=== PATIENT | female | born 1995 | race Caucasian/White ===

== ENCOUNTER 2018-02-13 21:06 | Emergency (ER) | payer MEDICAID, SELFPAY ==
[2018-02-13 22:01] LABS: Bilirubin Negative (Negative); Blood, Urine Negative (Negative); Clarity Clear (Clear); Glucose, Urine (Dipstick) Negative (Negative); Leukocyte Negative (Negative); Nitrite Negative (Negative); Protein, Urine (Dipstick) Negative (Neg-Trace); Urobilinogen 0.2 mg/dL (0.2-1.0); pH, Urine 5.5 (5.0-9.0)
[2018-02-13 22:02] LABS: Pregnancy Test - Urine (BHCG) Negative (Negative); Pregu Control Background? CLEAR/WHITE (CLR/WHITE); Pregu Control Bar Appear? YES (CONTROL BAR)
[2018-02-13 22:50] LABS: BHCG - Serum Negative (NEGATIVE); Pregs Control Background? CLEAR/WHITE (CLR/WHITE); Pregs Control Bar Appear? YES (CONTROL BAR)
--- NOTE | 2018-02-13 23:15 | RAD ---
ACUTE ABDOMINAL SERIES: 02/13/18 HISTORY: Abdominal cramping and constipation. Patient reports right sided lower abdominal pain. CHEST X-RAY: Compared to study on 12/26/15. The cardiac silhouette and pulmonary vasculature are within normal limits. Lungs remain clear. No sung e intraperitoneal air is seen beneath the hemidiaphragms. Upright and supine views of the abdomen. There is a nonspecific bowel gas pattern. No suspicious calc ifications are seen. Osseous structures are intact. IMPRESSION: Nonspecific bowel gas pattern. POS: [facility]
== END 2018-02-13 23:18 | disposition home or self-care (01) ==
LOC: SCSER 21:06
DX: K59.00 Constipation, unspecified (principal); J45.909 Unspecified asthma, uncomplicated; Z79.899 Other long term (current) drug therapy
CPT/HCPCS: 74022; 81003; 81025; 84703

== ENCOUNTER 2018-05-20 19:46 | Emergency (ER) | payer SELFPAY ==
[2018-05-20] MEDS ORDERED: Albuterol Sulfate 2.5 mg/0.5 ml Neb ONE (20:12)
[2018-05-20] MEDS ORDERED: methylPREDNISolone Sod Succ/PF 125 MG/2 ML VIAL ONE (21:00)
[2018-05-20] MEDS ORDERED: Magnesium Sulfate 2 GM/100 ML BAG ONE (21:00)
--- NOTE | 2018-05-20 21:57 | RAD ---
RADIOGRAPH CHEST 1 VIEW: 05/20/18 HISTORY: 22-year-old female with cough, tachycardia, and dyspnea. FINDINGS: The visualized lung bonilla are clear. The cardiomediastinal silhouette and hilar shadows are normal. The lateral costophrenic angles are sharp. The osseous structures appear normal. There is no pneu mothorax. IMPRESSION: Negative. jn [] POS: [facility]
[2018-05-20] MEDS ORDERED: Albuterol Sulfate 2.5 mg/3 ml Neb ONE (22:09)
== END 2018-05-20 23:04 | disposition home or self-care (01) ==
LOC: ERS 19:46
DX: J45.901 Unspecified asthma with (acute) exacerbation (principal); E11.9 Type 2 diabetes mellitus without complications; Z87.891 Personal history of nicotine dependence; Z79.899 Other long term (current) drug therapy
CPT/HCPCS: 71045; 93005; 94640; 96365; 96375; J2930; J3475; J7611

== ENCOUNTER 2018-05-31 19:13 | Emergency (ER) | payer SELFPAY ==
[2018-05-31] MEDS ORDERED: Albuterol Sulfate 2.5 mg/3 ml Neb ONE ×2 (19:36)
--- NOTE | 2018-05-31 19:46 | RAD ---
TWO VIEWS CHEST: Comparison: 05-20-18 History: Shortness of breath that began yesterday and dyspnea. FINDINGS: Two views of the chest show normal sized cardiomediastinal silhouette. There is no evidence of consol idation, mass, or pleural effusion. The bones are unremarkable. IMPRESSION: No evidence of acute cardiopulmonary disease. POS: [facility]
[2018-05-31 19:47] LABS: Hemoglobin 14.2 g/dL (12.0-16.0); Mean Corpuscular HGB CONC 32.3 g/dL (32.0-36.0); Mean Corpuscular Hemoglobin 26.5 pg (27.0-31.0); Mean Corpuscular Volume 82.2 fL (78.0-98.0); Mean Platelet Volume 6.3 fL (7.4-10.4); Platelet Count 423 thou/uL (130-400); RBC Distribution Width 13.7 % (11.5-14.5); Red Blood Cell (RBC) Count 5.35 mill/uL (4.20-5.40); White Blood Cell (WBC) Count 21.9 thou/uL (4.8-10.8)
[2018-05-31 20:18] LABS: Band 4 % (5-11); Eosinophils 2 % (0-10); Lymphocytes 4 % (21-51); MDiff Complete? YES; Monocytes 3 % (0-10); Neutrophil 86 % (42-75); PLT Morphology Comment Appears Increased
== END 2018-05-31 21:01 | disposition home or self-care (01) ==
LOC: ERS 19:13
DX: J45.901 Unspecified asthma with (acute) exacerbation (principal); E11.9 Type 2 diabetes mellitus without complications; Z79.899 Other long term (current) drug therapy
CPT/HCPCS: 36415; 71046; 85025; 94640; J7611

== ENCOUNTER 2018-12-19 07:18 | Inpatient (IN) | payer SELFPAY ==
[2018-12-19 07:47] LABS: #Monocytes 1.3 thou/uL (0.11-0.59); #Neutrophils 11.9 thou/uL (1.40-6.50); %Basophils 0.3 % (0.0-1.0); %Eosinophils 0.2 % (0.0-10.0); %Lymphocytes 18.6 % (21.0-51.0); %Monocytes 7.9 % (0.0-10.0); Hemoglobin 13.3 g/dL (12.0-16.0); Mean Corpuscular HGB CONC 32.2 g/dL (32.0-36.0); Mean Corpuscular Hemoglobin 26.6 pg (27.0-31.0); Mean Corpuscular Volume 82.7 fL (78.0-98.0); Mean Platelet Volume 6.6 fL (7.4-10.4); Platelet Count 410 thou/uL (130-400); RBC Distribution Width 13.4 % (11.5-14.5); Red Blood Cell (RBC) Count 4.99 mill/uL (4.20-5.40); White Blood Cell (WBC) Count 16.3 thou/uL (4.8-10.8)
[2018-12-19 07:55] LABS: BHCG - Serum Negative (NEGATIVE); Pregs Control Background? CLEAR/WHITE (CLR/WHITE); Pregs Control Bar Appear? YES (CONTROL BAR)
[2018-12-19 08:10] LABS: ALT (SGPT) 14 U/L (8-55); AST (SGOT) 12 U/L (5-34); Albumin 3.9 g/dL (3.5-5.0); Alkaline Phosphatase 75 U/L (40-150); Anion Gap 15 mmol/L (10-20); BUN (Urea Nitrogen) 11 mg/dL (7.0-18.7); Bilirubin, Total 0.4 mg/dL (0.2-1.2); Calc. Creatinine Clearance 0 mL/min (70-130); Calcium 8.6 mg/dL (7.8-10.44); Carbon Dioxide 19 mmol/L (22-29); Chloride 101 mmol/L (98-107); Estimated GFR-MDRD 81; Globulin 2.9 g/dL (2.4-3.5); Glucose 119 mg/dL (70-105); Potassium 3.3 mmol/L (3.5-5.1); Protein, Total 6.8 g/dL (6.0-8.3); Sodium 132 mmol/L (136-145)
--- NOTE | 2018-12-19 08:36 | RAD ---
RADIOGRAPH CHEST 1 VIEW: HISTORY: A 23-year-old female with dyspnea. FINDINGS: There are no air space densities, pulmonary edema, pneumothorax, or cardiomegaly. The lateral costop hrenic angles are sharp. IMPRESSION: No acute cardiopulmonary findings. charito [] POS: [facility]
--- NOTE | 2018-12-19 09:04 | CT ---
CTA THORAX WITH CONTRAST: (Computed Tomographic Angiography, chest(noncoronary) with contrast material, and image postprocessin g) (PE protocol) DATE: 12/19/2018. TIME: 8:08 a.m. HISTORY: A 23-year-old female with tachycardia, dyspnea, productive cough, and tachypnea. Dr. Torres discussed the findings and differential diagnosis with [facility] 8:27 a.m. on 12/19/2018. TECHNIQUE: IV injection of iodinated contrast: 100 mL of Isovue 370. Scan acquisition timing attempted to coincide with iodinated contrast bolus reaching maximal density in pulmonary arteries. 3D MIP reconstructions. FINDINGS: There is suboptimal IV contrast opacification of the pulmonary arteries, such that it is difficult to evaluate the branches of the left and right main pulmonary arteries for pulmonary thromboembolism. There is no thrombus in the pulmonic trunk or the left and right main pulmonary arteries. There is s ignificant hilar and mediastinal lymphadenopathy, with numerous noncalcified moderately enlarged bila teral hilar and mediastinal lymph nodes. No cardiomegaly, pericardial effusion, pleural effusion, or pneumothorax. The liver is enlarged and has low density suggestive of fatty liver. No thoracic aor tic dissection or aneurysm. There are multiple irregularly shaped noncalcified pulmonary nodules in the posterior and posteromedial base of the left lower lobe, with the larger ones almost reaching 2 c m. There are fewer such nodules in the right lower lobe base laterally. There is also tree-in-bud no dularity scattered in the lungs, mostly lower lobe bases, but also to a lesser degree other areas inc luding bilateral upper lobes and right middle lobe. There are small patchy airspace densities in the medial anterior segments of bilateral upper lobes, lingula, and right middle lobe. The trachea and left and right mainstem bronchi are patent and clear. IMPRESSION: 1. Significant mediastinal and bilateral hilar lymphadenopathy. 2. Tree-in-bud pattern throughout both lungs, especially in lower lobes. 3. Moderate suzed noncalcified irregularly shaped bilateral lower lobe pulmonary nodules, left great er than right. 4. The differential diagnoses for the above findings includes sarcoidosis, infection with atypical o rganisms, and less likely malignancy. 5. No central pulmonary thromboembolism in the pulmonic trunk and left and right main pulmonary gely eug[place]. 6. Poor IV contrast opacification of branches of pulmonary arteries making it difficult to evaluate for pulmonary thromboembolism in the branches of the pulmonary arteries. 7. Hepatomegaly and hepatic steatosis. CODE MERLE [email or web address][] POS: [facility]
[2018-12-19] MEDS ORDERED: cefTRIAXone\\ROCEPHIN 1 GM VIAL ONE (09:15)
[2018-12-19] MEDS ORDERED: Loratadine 10 MG TAB PO PRN (09:46)
[2018-12-19] MEDS ORDERED: Bisacodyl 5 MG TAB PO PRN (09:46)
[2018-12-19] MEDS ORDERED: Sodium Chloride 0.65% Nasal 44 ML BOT EA NARE PRN (09:46)
[2018-12-19] MEDS ORDERED: Metoclopramide HCl 10 MG/2 ML VIAL IVP PRN (09:46)
[2018-12-19] MEDS ORDERED: Zolpidem Tartrate 5 MG TAB PO PRN (09:46)
[2018-12-19] MEDS ORDERED: Bisacodyl 10 MG SUPP PR PRN (09:46)
[2018-12-19] MEDS ORDERED: Senokot S 8.6-50 MG TAB PO PRN (09:46)
[2018-12-19] MEDS ORDERED: Eucerin (Mineral Oil/Petrolatum,White) 30 gm Jar TOP PRN (09:46)
[2018-12-19] MEDS ORDERED: Loperamide HCl 2 MG CAP PO PRN (09:46)
[2018-12-19] MEDS ORDERED: Artificial Tears 18 DROP/0.9 ML EA EYE PRN (09:46)
[2018-12-19] MEDS ORDERED: Calcium Carbonate 500 MG ChewTAB PO PRN (09:46)
[2018-12-19] MEDS ORDERED: Sodium Chloride 0.9% 1,000 ML IV SCH (10:00)
[2018-12-19] MEDS ORDERED: ISOVUE-370 76%-LOCM 1 ML ONE (10:15)
[2018-12-19 10:33] VITALS: BMI 44.5
--- NOTE | 2018-12-19 10:51 | HP ---
PRIMARY CARE PHYSICIAN: Dr. Cruz. REASON FOR ADMISSION: Atypical pneumonia, sepsis. HISTORY OF PRESENT ILLNESS: A 23-year-old female, who has underlying morbid obesity as well as asthma, who presented to emergency room with complaint of increasing shortness of breath and increasing cough. The patient reports that symptoms started about a week ago with upper respiratory symptoms. She was having sore throat and dry cough. She was taking [id number] medication including DayQuil and Mucinex. For last 2 to 3 days, she was becoming more and more shortness of breath and she started coughing yellowish green sputum. She denies any hemoptysis. She was having pleuritic chest discomfort and because of excessive coughing, she was having chest wall and abdominal soreness. She was also having fever with occasional chills. She was feeling weak and tired. She was having body ache and arthralgia. She was getting more and more exhausted, and she was feeling more and more shortness of breath and that is why, today she decided to come to emergency room. The patient does have underlying history of asthma and she was using her regular inhaler, which was not helping. In the emergency room, the patient was tachycardic with heart rate was in above 120. Her blood pressure was marginally low. She had a chest x-ray, which was unremarkable, but CT angiography was negative for PE, but it did show tree-in-bud pattern throughout both lungs as well as mediastinal and bilateral hilar lymphadenopathy as well as pulmonary nodule or infiltration. Routine blood test showed leukocytosis, hyponatremia, and hypokalemia. The patient was appeared sick in the emergency room. We decided to keep this patient in the hospital. The patient was given DuoNeb therapy by Paramedics, but the patient had bad reaction with DuoNeb therapy. She was given IV fluid and antibiotic therapy with Rocephin and azithromycin in the emergency room. REVIEW OF SYSTEMS: CONSTITUTIONAL: Negative for weight loss or gain, ability to conduct usual activities. SKIN: Negative for rash, itching. EYES: Negative for double vision, pain. ENT/MOUTH: Negative for nose bleeding, neck stiffness, pain, tenderness. CARDIOVASCULAR: Negative for palpitations, dyspnea on exertion, orthopnea. RESPIRATORY: Negative for shortness of breath, wheezing, cough, hemoptysis, fever or night sweats. GASTROINTESTINAL: Negative for poor appetite, abdominal pain, heartburn, nausea, vomiting, constipation, or diarrhea. GENITOURINARY: Negative for urgency, frequency, dysuria, nocturia. MUSCULOSKELETAL: Negative for pain, swelling. NEUROLOGIC/PSYCHIATRIC: Negative for anxiety, depression. ALLERGY/IMMUNOLOGIC: Negative for skin rash, bleeding tendency. Please see my HPI for pertinent positive and negative. All other review of systems reviewed and negative except as mentioned in HPI. PAST MEDICAL HISTORY: Morbid obesity and mild intermittent asthma. PAST SURGICAL HISTORY: Surgery over right jaw to remove myiasis. PAST PSYCHIATRIC HISTORY: Reviewed and negative. SOCIAL HISTORY: The patient is . She has 2 kids. She lives at home with family. No history of tobacco, alcohol, or illicit drug abuse. She quit smoking about 2 to 3 years ago. FAMILY HISTORY: No family history of coronary artery disease, stroke, or cancer. ALLERGIES: ATROVENT. CURRENT HOME MEDICATIONS: 1. Prednisone 10 mg daily. 2. Albuterol inhaler q.4 hourly p.r.n. 3. Pulmicort Flexhaler 2 puffs inhalation daily. EMERGENCY ROOM COURSE: The patient is given Rocephin, azithromycin, and IV fluid. PHYSICAL EXAMINATION: VITAL SIGNS: On arrival; blood pressure 96/82, pulse 127 and regular, tachycardia, respiratory rate 26, temperature 99.1, and saturation 97% on room air. Weight 117.9 kg. GENERAL: The patient is currently in mild respiratory distress, tachycardic, hypotensive. HEENT: Head; normocephalic and atraumatic. Eyes; pupils round and reactive to light. Extraocular muscle intact. ENT; oropharynx within normal limit. No pharyngeal erythema. No exudate. NECK: Supple. No JVD. No thyromegaly. No meningeal signs of irritation. LUNGS: Bilateral scattered rales noted. No wheezing. No accessory muscles of respiration in use. CARDIAC: S1 and S2, regular, tachycardia. No murmur. No gallop. No rub. ABDOMEN: Morbid obesity, limiting examination. Bowel sounds present. Nontender. Nondistended. No organomegaly. No mass. No suprapubic tenderness. BACK: Unremarkable. No CVA tenderness. EXTREMITIES: Upper extremities; passive movement of all joints are normal. Lower extremities, no edema. Good distal pulsation. SKIN: No skin rash. HEMATOLOGIC: No lymphadenopathy. PSYCHIATRIC: Normal affect. NEUROLOGIC: Nonfocal examination. SIGNIFICANT LABORATORY DATA: EKG showing sinus tachycardia. Chest x-ray, no acute cardiopulmonary process. CT angiography, negative for pulmonary embolism. The patient does have moderately large noncalcified bilateral lower lobe pulmonary nodules, more on left side tree-in-bud pattern both lungs, bilateral hilar and mediastinal lymphadenopathy, hepatomegaly and fatty liver. CBC; WBC 16.3, hemoglobin 13.3, platelet 410. BMP; sodium 132, potassium 3.3, chloride 101, carbon dioxide 19, BUN 11, creatinine 0.86, glucose 119, calcium 8.6. LFT; AST 12, ALT 14, alkaline phosphatase 75, and albumin 3.9. ASSESSMENT AND PLAN: 1. Atypical pneumonia. This patient has respiratory symptoms for about 1 week. She has nodular infiltration in lower part of the lung. She has leukocytosis, fever, and recent upper respiratory infection. Viral etiology needs to be excluded. We will check viral panel. As the patient also has associated hyponatremia, we will check urine streptococcal antigen as well as urine Legionella antigen. We will cover community organism as well as atypical organism with Rocephin and azithromycin. 2. Sepsis with systemic inflammatory response syndrome criteria. This patient has leukocytosis, fever tachycardia, hypotension, met sepsis criteria and that is why, we will monitor on telemetry floor. 3. Asthma with mild exacerbation. The patient will be given Solu-Medrol 40 mg IV q.6 hourly along with empiric antibiotic therapy as above, and we will continue Ventolin nebulization q.6 hourly p.r.n. basis. 4. Abnormal CT angiography. The patient does have mediastinal and bilateral hilar lymphadenopathy, may be reactive in nature secondary to infection. The patient does have tree-in-bud pattern throughout both lungs along with nodular infiltration. This patient has morbid obesity as well as differential diagnosis is sarcoidosis versus atypical pneumonia. We will consult steam powerplant supervisor for their opinion. This patient will need repeat imaging after acute treatment. 5. Hepatomegaly and hepatic steatosis. Liver enzymes are normal, most likely related with obesity. 6. Morbid obesity. Dietary education given. Weight loss education given. Healthy lifestyle measure discussed with the patient. 7. Deep venous thrombosis prophylaxis. Lovenox 40 mg subcu daily. 8. Gastrointestinal prophylaxis. Pepcid 20 mg p.o. b.i.d. CODE STATUS: The patient is full code. The patient's is surrogate decision maker. DISPOSITION PLAN: Based on clinical course, we are expecting the patient's stay in hospital more than 2 midnights. Plan of care discussed with the patient and family member at bedside in the emergency room. Job ID: [id number]
[2018-12-19] MEDS: cefTRIAXone\\ROCEPHIN 2 GM in Sodium Chloride 0.9% 100 ML IVPB SCH (11:04)
[2018-12-19] MEDS: Albuterol Sulfate 2.5 mg/3 ml Neb NEB PRN ×2 (11:11→23:56)
[2018-12-19] MEDS: Azithromycin 500 MG in Sodium Chloride 0.9% 250 ML 250 ML IVPB SCH (11:16)
[2018-12-19] MEDS: Acetaminophen 325 MG TAB PO PRN ×2 (11:29→20:29)
[2018-12-19] MEDS: Potassium Chloride 30 MEQ in Sodium Chloride 0.9% 1,000 ML IV SCH ×2 (12:26→20:23)
[2018-12-19] MEDS: HYDROcodone/Acetaminophen 5/325 mg Tablet PO PRN ×3 (12:27→20:24)
[2018-12-19 12:45] LABS: Bilirubin Negative (Negative); Blood, Urine Moderate (Negative); Clarity CLEAR (Clear); Glucose, Urine (Dipstick) Negative (Negative); Leukocyte Negative (Negative); Nitrite Negative (Negative); Protein, Urine (Dipstick) Negative (Neg-Trace); Urobilinogen 0.2 mg/dL (0.2-1.0)
[2018-12-19 12:46] LABS: Bacteria/HPF None Seen HPF (None Seen); Hyaline Casts/LPF 0-3 HYALINE CAST LPF (0-3 Hyaline); Pathc Cast-AUWi Flag 0.43 (0-2.49); RBC/HPF 21-50 HPF (0-3); Squamous Epithelial 0-3 HPF (0-3); WBC/HPF 0-3 HPF (0-3)
[2018-12-19 14:10] LABS: HIV (1/2) Antibody/Antigen Non-Reactive (NonReactive); HIV 1/2 INDEX 0.07 S/CO (<1.00)
[2018-12-19 14:10] LABS: Legionella Urinary Ag Negative (Negative); Strep pneumo Urine Ag NEGATIVE (NEGATIVE)
[2018-12-19] MEDS: guaiFENesin ER 600 MG TAB PO SCH ×2 (15:58→20:23)
--- NOTE | 2018-12-19 16:11 | CON ---
DATE OF CONSULTATION: CONSULTING PHYSICIAN: Dr. Frias. REASON FOR CONSULTATION: Pneumonia. HISTORY OF PRESENT ILLNESS: This patient is a 23-year-old female, who came into the hospital earlier today. She has a 1-day history of subjective fever, increasing shortness of breath, and a dry cough. She says that both of her children have been sick recently, but have gotten better. She denies any exposures including no animal exposures. No exposure to smoke. PAST MEDICAL HISTORY: Remarkable for asthma. She is on chronic prednisone for that. PAST SURGICAL HISTORY: Right jaw surgery. SOCIAL HISTORY: She is . She quit smoking 2 to 3 years ago. Does not consume alcohol. Does not use illicit drugs. She has had Trichomonas in the past, but says she has never had any other STDs to speak of. ALLERGIES: ATROVENT. MEDICATIONS: Prior to admission: 1. Prednisone. 2. Albuterol. 3. Pulmicort Flexhaler. REVIEW OF SYSTEMS: A 12-point review of systems is otherwise negative. FAMILY MEDICAL HISTORY: Unremarkable. PHYSICAL EXAMINATION: VITAL SIGNS: Temperature 100.0, pulse 132, respirations 24, O2 saturation 94% on 2 L, and blood pressure 134/78. She is 5 feet 6 inches, weighs 275 pounds. She appears in respiratory distress with any mild movement. HEENT: Pupils react. Sclerae anicteric. Oropharynx clear. NECK: No adenopathy or JVD. LUNGS: She has diffuse inspiratory and expiratory crackles bilaterally. CARDIAC: S1 and S2. Tachycardic. No murmur. ABDOMEN: Soft, obese, nontender, and nondistended. She has abdominal striae. EXTREMITIES: No clubbing, cyanosis, or edema. NEUROLOGIC: Grossly intact throughout. LABORATORY DATA: White blood cell count 16, hematocrit 41, platelet count 410. Sodium 132, potassium 3.3, chloride 101, CO2 of 19, BUN 11, creatinine 0.8, and glucose 119. Urinalysis showed some blood and red blood cells. The CT scan shows some tree-in-bud interstitial changes bilaterally, otherwise essentially looks okay. ASSESSMENT: 1. Atypical pneumonitis. 2. Acute hypoxic respiratory failure. Differential diagnosis includes mycoplasma, chlamydia, streptococcal, fungal organisms, and viral organisms. If she was HIV positive, then differential would broaden. RECOMMENDATIONS: I think the current treatment with azithromycin and ceftriaxone is appropriate. Given that she is on steroids at home, I agree with giving her stress steroids here. She needs low-flow oxygen. She needs to be watched closely. Further disposition to follow. Job ID: [id number]
[2018-12-19] MEDS: Famotidine 20 MG TAB PO SCH (20:23)
[2018-12-19] MEDS: Cepastat Lozenges 1 LOZ PO PRN (21:50)
[2018-12-20] MEDS: Cepastat Lozenges 1 LOZ PO PRN ×2 (03:26→11:19)
[2018-12-20] MEDS: Diabetic Tussin 200 MG/10 ML UDCUP PO PRN (03:26)
[2018-12-20] MEDS: HYDROcodone/Acetaminophen 5/325 mg Tablet PO PRN (03:26)
[2018-12-20 05:42] LABS: #Lymphocytes 1.6 thou/uL (1.20-3.40); #Monocytes 0.7 thou/uL (0.11-0.59); #Neutrophils 15.3 thou/uL (1.40-6.50); %Basophils 0.1 % (0.0-1.0); %Eosinophils 0.1 % (0.0-10.0); %Lymphocytes 9.1 % (21.0-51.0); %Monocytes 3.9 % (0.0-10.0); %Neutrophils 86.9 % (42.0-75.0); Hemoglobin 12.3 g/dL (12.0-16.0); Mean Corpuscular HGB CONC 31.9 g/dL (32.0-36.0); Mean Corpuscular Hemoglobin 26.8 pg (27.0-31.0); Mean Corpuscular Volume 83.9 fL (78.0-98.0); Mean Platelet Volume 6.8 fL (7.4-10.4); Platelet Count 377 thou/uL (130-400); RBC Distribution Width 13.5 % (11.5-14.5); Red Blood Cell (RBC) Count 4.61 mill/uL (4.20-5.40); White Blood Cell (WBC) Count 17.6 thou/uL (4.8-10.8)
[2018-12-20] MEDS: Acetaminophen 325 MG TAB PO PRN (05:45)
[2018-12-20] MEDS: Albuterol Sulfate 2.5 mg/3 ml Neb NEB PRN ×2 (05:57→10:36)
[2018-12-20 06:01] LABS: ALT (SGPT) 12 U/L (8-55); AST (SGOT) 10 U/L (5-34); Albumin 3.5 g/dL (3.5-5.0); Alkaline Phosphatase 69 U/L (40-150); Anion Gap 9 mmol/L (10-20); BUN (Urea Nitrogen) 12 mg/dL (7.0-18.7); Bilirubin, Total 0.2 mg/dL (0.2-1.2); Calc. Creatinine Clearance 207 mL/min (70-130); Carbon Dioxide 23 mmol/L (22-29); Chloride 109 mmol/L (98-107); Estimated GFR-MDRD 87; Glucose 261 mg/dL (70-105); Potassium 4.3 mmol/L (3.5-5.1); Protein, Total 6.5 g/dL (6.0-8.3); Sodium 137 mmol/L (136-145)
[2018-12-20] MEDS: Enoxaparin Sodium 40 MG/0.4 ML SYRINGE SC SCH (08:58)
[2018-12-20] MEDS: Famotidine 20 MG TAB PO SCH ×2 (08:58→20:01)
[2018-12-20] MEDS: guaiFENesin ER 600 MG TAB PO SCH ×3 (08:58→20:01)
[2018-12-20] MEDS: cefTRIAXone\\ROCEPHIN 2 GM in Sodium Chloride 0.9% 100 ML IVPB SCH (09:00)
[2018-12-20] MEDS ORDERED: Prevnar 13-Val Conj/PF 0.5 ML SYRINGE IM ONE (09:00)
[2018-12-20 09:14] LABS: Hemoglobin A1c 6.3 % (4.0-6.0)
[2018-12-20] MEDS ORDERED: Budesonide 0.25 MG/2 ML NEB INH SCH (11:00)
[2018-12-20] MEDS: Azithromycin 500 MG in Sodium Chloride 0.9% 250 ML 250 ML IVPB SCH (11:18)
[2018-12-20] MEDS: Potassium Chloride 30 MEQ in Sodium Chloride 0.9% 1,000 ML IV SCH (11:21)
--- NOTE | 2018-12-20 11:38 | PDOC.PN ---
- Subjective Encounter Start Date: 12/20/18 Encounter Start Time: 07:20 -: old records requested/rev pt feels better, has wheezing, has cough, no fever, no more tachycardia Patient seen and examined. No overnight events - Objective Resuscitation Status - Order Detail: 12/19/18 09:46 Resuscitation Status Routine Resuscitation Status: FULL: Full Resuscitation MAR Reviewed: Yes Vital Signs & Weight: Vital Signs (12 hours) Temp Pulse Resp BP BP Pulse Ox 12/20/18 11:22 98.1 F 103 H 18 131/66 95 12/20/18 11:12 76 16 12/20/18 10:36 76 18 12/20/18 08:58 93 L 12/20/18 07:43 96.9 F L 88 18 110/52 L 93 L 12/20/18 05:57 82 18 94 L 12/20/18 04:05 97.9 F 90 20 105/55 L 93 L 12/19/18 23:56 79 18 93 L Weight Weight 270 lb 1.6 oz I&O: 12/19/18 12/20/18 12/21/18 06:59 06:59 06:59 Intake Total 2800 Output Total 1350 Balance 1450 Result Diagrams: 12/20/18 05:10 12/20/18 05:10 Additional Labs: Accuchecks 12/20/18 12/19/18 05:49 20:29 POC Glucose 233 H 264 H EKG Reviewed by me: Yes (nsr) Phys Exam - Physical Examination Constitutional: NAD HEENT: PERRLA, moist MMs, sclera anicteric Neck: no JVD, supple Respiratory: no rales, wheezing present Cardiovascular: RRR, no significant murmur, no rub Gastrointestinal: soft, non-tender, no distention, positive bowel sounds obesity+ Musculoskeletal: no edema, pulses present Neurological: non-focal, normal sensation, moves all 4 limbs Lymphatic: no nodes Psychiatric: normal affect, A&O x 3 Skin: no rash, normal turgor Dx/Plan (1) Asthma exacerbation Code(s): J45.901 - UNSPECIFIED ASTHMA WITH (ACUTE) EXACERBATION Status: Acute Qualifiers: Asthma severity: moderate Asthma persistence: persistent Qualified Code(s ): J45.41 - Moderate persistent asthma with (acute) exacerbation (2) Atypical pneumonia Code(s): J18.9 - PNEUMONIA, UNSPECIFIED ORGANISM Status: Acute (3) Hypokalemia Code(s): E87.6 - HYPOKALEMIA Status: Resolved (4) Hyponatremia Code(s): E87.1 - HYPO-OSMOLALITY AND HYPONATREMIA Status: Resolved (5) Infection due to human metapneumovirus (hMPV) Code(s): B97.81 - HUMAN METAPNEUMOVIRUS THE CAUSE OF DISEASES CLASSD ELSWHR Status: Acute (6) Mediastinal lymphadenopathy Code(s): R59.0 - LOCALIZED ENLARGED LYMPH NODES Status: Acute (7) Sepsis Code(s): A41.9 - SEPSIS, UNSPECIFIED ORGANISM Status: Acute (8) Hepatic steatosis Code(s): K76.0 - FATTY (CHANGE OF) LIVER, NOT ELSEWHERE CLASSIFIED Status: Chronic (9) Morbid obesity with BMI of 40.0-44.9, adult Code(s): E66.01 - MORBID (SEVERE) OBESITY DUE TO EXCESS CALORIES; Z68.41 - BODY MASS INDEX (BMI) 40.0-44.9, ADULT Status: Chronic (10) Diabetes type 2, controlled Code(s): E11.9 - TYPE 2 DIABETES MELLITUS WITHOUT COMPLICATIONS Status: Chronic - Plan cont current plan of care, continue antibiotics, respiratory therapy * DC IVF * continue rocephin and azithromycin * home medication reconciled * transfer to medical * reduce solumedrol 20 mg iv q 6hrly * medication reviewed as below * symptomatic treatment. * will start metformin on discharge Review of Systems - Review of Systems Constitutional: negative: fever, chills, sweats, weakness, malaise, other Eyes: negative: Pain, Vision Change, Conjunctivae Inflammation, Eyelid Inflammation, Redness, Other ENT: negative: Ear Pain, Ear Discharge, Nose Pain, Nose Discharge, Nose Congestion, Mouth Pain, Mouth Swelling, Throat Pain, Throat Swelling, Other Respiratory: Cough, Shortness of Breath, SOB with Excertion, Wheezing. negative : Dry, Hemoptysis, Pleuritic Pain, Sputum Cardiovascular: negative: chest pain, palpitations, orthopnea, paroxysmal nocturnal dyspnea, edema, light headedness, other Gastrointestinal: negative: Nausea, Vomiting, Abdominal Pain, Diarrhea, Constipation, Melena, Hematochezia, Other Genitourinary: negative: Dysuria, Frequency, Incontinence, Hematuria, Retention , Other Musculoskeletal: negative: Neck Pain, Shoulder Pain, Arm Pain, Back Pain, Hand Pain, Leg Pain, Foot Pain, Other Skin: negative: Rash, Lesions, Dharmesh, Bruising, Other - Medications/Allergies Allergies/Adverse Reactions: Allergies Allergy/AdvReac Type Severity Reaction Status Date / Time ipratropium [From Atrovent] Allergy Verified 12/19/18 18:14 Medications: Current Medications Acetaminophen (Tylenol) 650 mg PO Q4H PRN PRN Reason: Headache/Fever/Mild Pain (1-3) Last Admin: 12/20/18 05:45 Dose: 650 mg Hydrocodone Bitart/Acetaminophen ([place] 5/325) 1 tab PO Q4H PRN PRN Reason: Moderate Pain (4-6) Last Admin: 12/20/18 03:26 Dose: 1 tab Albuterol Sulfate (Ventolin) 2.5 mg NEB [id number] PRN PRN Reason: Wheezing Last Admin: 12/20/18 10:36 Dose: 2.5 mg Artificial Tears (Tears Naturale) 2 drop EA EYE PRN PRN PRN Reason: Dry Eyes Bisacodyl (Dulcolax) 10 mg PO DAILYPRN PRN PRN Reason: Constipation Bisacodyl (Dulcolax) 10 mg CA DAILYPRN PRN PRN Reason: Constipation Budesonide (Pulmicort Neb Solution) 0.5 mg INH BID-RT DYLAN Budesonide (Pulmicort Neb Solution) 0.5 mg INH NOW [facility] Stop: 12/20/18 13:00 Last Admin: 12/20/18 11:12 Dose: 0.5 mg Calcium Carbonate (Tums) 1,000 mg PO Q4H PRN PRN Reason: Heartburn or Indigestion Enoxaparin Sodium (Lovenox) 40 mg SC 0900 [facility] Last Admin: 12/20/18 08:58 Dose: 40 mg Famotidine (Pepcid) 20 mg PO BID [facility] Last Admin: 12/20/18 08:58 Dose: 20 mg Guaifenesin (Mucinex) 600 mg PO TID [facility] Last Admin: 12/20/18 08:58 Dose: 600 mg Guaifenesin (Robitussin Sf) 200 mg PO Q4H PRN PRN Reason: Cough Last Admin: 01/27/19 03:26 Dose: 200 mg Azithromycin 500 mg/ Sodium (Chloride) 250 mls @ 250 mls/hr IVPB 1100 [facility] Last Admin: 12/20/18 11:18 Dose: 250 mls Ceftriaxone Sodium 2 gm/ (Sodium Chloride) 100 mls @ 200 mls/hr IVPB 1000 [facility] Last Admin: 12/20/18 09:00 Dose: 100 mls Loperamide HCl (Imodium) 2 mg PO PRN PRN PRN Reason: Diarrhea/Loose Stools Loratadine (Claritin) 10 mg PO DAILYPRN PRN PRN Reason: Sinus Symptoms Methylprednisolone Sodium Succinate (Solu-Medrol) 20 mg IVP Q6HR [facility] Metoclopramide HCl (Reglan) 5 mg IVP Q4H PRN PRN Reason: Nausea Mineral Oil/White Petrolatum (Eucerin Cream) 0 gm TOP BIDPRN PRN PRN Reason: Dry Skin Montelukast Sodium (Singulair) 10 mg PO HS [facility] Saccharomyces Boulardii (Florastor) 250 mg PO DAILY [facility] Senna/Docusate Sodium (Senokot S) 2 tab PO BID PRN PRN Reason: Constipation Sodium Chloride ([place] Nasal [place] 0.65%) 0 ml EA NARE QIDPRN PRN PRN Reason: Nasal Congestion Throat Lozenges (Cepastat Lozenges) 1 cynthia PO Q2H PRN PRN Reason: Sore Throat Last Admin: 12/20/18 11:19 Dose: 1 cynthia Zolpidem Tartrate (Ambien) 5 mg PO HSPRN PRN PRN Reason: Insomnia
[2018-12-20] MEDS: Saccharomyces boulardii 250 MG CAP PO SCH (12:45)
--- NOTE | 2018-12-20 13:00 | PRG ---
DATE OF SERVICE: 12/20/2018 SUBJECTIVE: She feels somewhat better, but is wheezing more than she did yesterday. OBJECTIVE: VITAL SIGNS: On exam, temperature 98.1, pulse 103, respirations 18, O2 saturation 94% on room air, blood pressure 131/66. HEENT: Unremarkable. NECK: No JVD. LUNGS: Diffuse wheezing. CARDIAC: S1 and S2, regular. ABDOMEN: Soft. EXTREMITIES: No edema. LABORATORY DATA: White blood cell count 17.6, hematocrit 38.7, and platelet count 377. Sodium 137, potassium 4.3, BUN 12, creatinine 0.8, glucose 261. HIV test was negative. Nasal smear demonstrated human metapneumovirus. ASSESSMENT: 1. Viral pneumonia. 2. Bronchospasm. RECOMMENDATIONS: 1. Schedule nebulization treatments. 2. Continue with IV antibiotics for the time being, although this is probably viral. 3. Continue with steroids. 4. Hopefully, home in 1 to 2 days. Job ID: [id number]
[2018-12-20] MEDS: Budesonide 0.5 MG/2 ML NEB INH SCH (20:00)
[2018-12-20] MEDS ORDERED: Montelukast Sodium 10 mg Tablet PO SCH (21:00)
[2018-12-21] MEDS: Diabetic Tussin 200 MG/10 ML UDCUP PO PRN (03:42)
[2018-12-21] MEDS: Cepastat Lozenges 1 LOZ PO PRN ×2 (03:49→08:56)
[2018-12-21] MEDS: Budesonide 0.5 MG/2 ML NEB INH SCH (05:54)
[2018-12-21] MEDS: Saccharomyces boulardii 250 MG CAP PO SCH (08:56)
[2018-12-21] MEDS: Enoxaparin Sodium 40 MG/0.4 ML SYRINGE SC SCH (08:56)
[2018-12-21] MEDS: guaiFENesin ER 600 MG TAB PO SCH (08:56)
[2018-12-21] MEDS: Famotidine 20 MG TAB PO SCH (08:56)
[2018-12-21] MEDS: cefTRIAXone\\ROCEPHIN 2 GM in Sodium Chloride 0.9% 100 ML IVPB SCH (09:04)
[2018-12-21] MEDS: Acetaminophen 325 MG TAB PO PRN (10:31)
--- NOTE | 2018-12-21 10:53 | PRG ---
DATE OF SERVICE: 12/21/2018 SUBJECTIVE: She is doing well, has no complaints. OBJECTIVE: VITAL SIGNS: Temperature 98.0, pulse 86, respirations 16, O2 saturation 95% on room air, and blood pressure 130/83. HEENT: Unremarkable. NECK: JVD. CHEST: Clear. CARDIAC: S1 and S2. Regular. ABDOMEN: Soft. EXTREMITIES: No edema. ASSESSMENT: The patient essentially has viral pneumonitis, which has improved. PLAN: I think she is stable enough to go home today. She should complete a short course of antibiotics and have her steroids tapered over a week or so. Because of the abnormality seen on her CT scan at the time of admission, she probably needs a chest x-ray performed in about 1 month, although I am not sure the current findings on the x-ray or anything, but chronic in nature. Job ID: [id number]
[2018-12-21] MEDS ORDERED: Ondansetron ODT 4 MG TAB PO SCH (11:15)
[2018-12-21 11:19] VITALS: BP 124/76; TEMP 98.2
--- NOTE | 2018-12-21 11:26 | DIS ---
DATE OF ADMISSION: 12/19/2018 DATE OF DISCHARGE: 12/21/2018 PRIMARY CARE PHYSICIAN: Dr. Cruz DISCHARGE DISPOSITION: Home. PRIMARY DISCHARGE DIAGNOSES: Asthma exacerbation, atypical pneumonia, infection due to human metapneumovirus infection, mediastinal lymphadenopathy, sepsis, hypokalemia, hyponatremia. SECONDARY DISCHARGE DIAGNOSES: Morbid obesity with BMI of 43, fatty liver, diabetes type 2, moderate persistent asthma. PRIMARY PROCEDURE/OPERATION: None. RADIOLOGICAL INVESTIGATION: CT angiography, no PE, but found with hilar and mediastinal lymphadenopathy and nodular infiltration. Chest x-ray was unremarkable. SIGNIFICANT LABORATORY DATA: WBC 17.6, hemoglobin 12.3, and platelets 377. Sodium 137, potassium 4.3, and creatinine 0.81. LFT normal. Hemoglobin A1c 6.3. negative. Urinalysis normal. Urine Legionella, streptococcal pneumoniae antigen negative. HIV negative. DISCHARGE MEDICATIONS: 1. Ventolin HFA 2 puffs q.6 hourly p.r.n. 2. Albuterol nebulization q.6 hourly p.r.n. 3. Pulmicort nebulization b.i.d. 4. Mucinex 600 mg t.i.d. for 7 days. 5. Levaquin 750 mg p.o. daily for 7 days. 6. Florastor 250 mg p.o. daily for 7 days. 7. Prednisone 20 mg p.o. b.i.d. for 5 days, then 20 mg p.o. daily for 5 days, then 10 mg p.o. daily. 8. Protonix 40 mg p.o. daily. 9. Singulair 10 mg at bedtime. 10. Metformin 1000 mg p.o. b.i.d. CONTRAINDICATION: None. CODE STATUS: Full code. INPATIENT CO FOUNDER AND CHIEF STRATEGY OFFICER: Dr. Vasquez. TEST RESULTS PENDING ON DISCHARGE: None. ALLERGIES: IPRATROPIUM. DISCHARGE PLAN: Posthospital, the patient will follow up with Dr. Cruz and Dr. Vasquez as instructed. HOSPITAL COURSE: This is a 23-year-old female, who was admitted by me, please see my HPI for further details. She was having hoarseness of voice. She was having cough, shortness of breath. She was tachycardic. She was meeting sepsis criteria. She had a chest x-ray, which was negative, but a CT angiography showed hilar and mediastinal lymphadenopathy and nodular infiltration. We admitted to telemetry floor for atypical pneumonia with asthma exacerbation. She was treated with steroid, empiric antibiotic therapy with Rocephin and azithromycin. With this therapy, the patient's SIRS criteria improved. Next day, we transferred her to medical floor. We continued with the empiric antibiotic therapy. She has significant clinical improvement. She was found with a human metapneumovirus infection. Upon discharge, we changed to levofloxacin, tapering doses of prednisone were given. All new medication prescription given and sent to her pharmacy. The patient is seen and examined at bedside today. She is on room air. She does not have any respiratory distress. She does have chronic wheezing on her lung examination. Her vitals are stable. She wants to go home today. All review of systems reviewed with her and negative. The patient is medically stable for discharge today. Job ID: [id number]
[2018-12-21] MEDS: Azithromycin 500 MG in Sodium Chloride 0.9% 250 ML 250 ML IVPB SCH (13:29)
== END 2018-12-21 12:24 | disposition home or self-care (01) | DRG 871 ==
LOC: ERS 07:18 → ERHOLD 08:35 → 2NO 08:48 → T4-B 12-20 17:55
PROVIDERS: ADMIT Internal Medicine; ATTEND Internal Medicine
DX: A41.9 Sepsis, unspecified organism (principal); J18.9 Pneumonia, unspecified organism; J96.01 Acute respiratory failure with hypoxia; J45.901 Unspecified asthma with (acute) exacerbation; Z68.41 Body mass index [BMI] 40.0-44.9, adult; E87.1 Hypo-osmolality and hyponatremia; K76.0 Fatty (change of) liver, not elsewhere classified; E66.01 Morbid (severe) obesity due to excess calories; E87.6 Hypokalemia; R59.0 Localized enlarged lymph nodes; E11.9 Type 2 diabetes mellitus without complications
CPT/HCPCS: 36415; 36416; 71045; 71275; 80053; 81001; 83036; 84703; 85025; 87040; 87389; 87633; 87899; 93005; 94640; 96361; 96374; J0456; J0696; J1650; J2765; J2920; J3480; J7050; J7611; J7620; J7626; Q9966

== ENCOUNTER 2019-10-27 10:39 | Emergency (ER) | payer SELFPAY ==
[2019-10-27] MEDS ORDERED: Iopamidol-370 76% 500 ML 1 ML ONE (11:50)
[2019-10-27] MEDS ORDERED: Ketorolac Tromethamine 30 MG/ML VIAL ONE (11:54)
[2019-10-27] MEDS ORDERED: Morphine 4 MG/ML VIAL ONE ×2 (11:54→14:33)
[2019-10-27] MEDS ORDERED: Promethazine HCl 25 MG/ML VIAL ONE ×2 (11:54→15:15)
[2019-10-27 15:08] LABS: #Eosinphils 0.4 thou/uL (0.0-0.7); #Lymphocytes 2.3 thou/uL (1.20-3.40); #Monocytes 1.1 thou/uL (0.11-0.59); #Neutrophils 13.5 thou/uL (1.40-6.50); %Basophils 0.2 % (0.0-1.0); %Eosinophils 2.3 % (0.0-10.0); %Lymphocytes 13.5 % (21.0-51.0); %Monocytes 6.2 % (0.0-10.0); %Neutrophils 77.8 % (42.0-75.0); Hemoglobin 15.5 g/dL (12.0-16.0); Mean Corpuscular HGB CONC 32.2 g/dL (32.0-36.0); Mean Corpuscular Hemoglobin 26.8 pg (27.0-31.0); Mean Corpuscular Volume 83.3 fL (78.0-98.0); Mean Platelet Volume 7.1 fL (7.4-10.4); Platelet Count 412 thou/uL (130-400); RBC Distribution Width 13.2 % (11.5-14.5); Red Blood Cell (RBC) Count 5.76 mill/uL (4.20-5.40); White Blood Cell (WBC) Count 17.3 thou/uL (4.8-10.8)
[2019-10-27 15:22] LABS: ALT (SGPT) 18 U/L (8-55); AST (SGOT) 9 U/L (5-34); Alkaline Phosphatase 78 U/L (40-110); Anion Gap 13 mmol/L (10-20); BUN (Urea Nitrogen) 17 mg/dL (7.0-18.7); Bilirubin, Total 1.2 mg/dL (0.2-1.2); Calc. Creatinine Clearance 0 mL/min (70-130); Carbon Dioxide 23 mmol/L (22-29); Chloride 104 mmol/L (98-107); Estimated GFR-MDRD 76; Globulin 2.9 g/dL (2.4-3.5); Glucose 168 mg/dL (70-105); Lactic Acid 2.8 mmol/L (0.5-2.2); Potassium 3.6 mmol/L (3.5-5.1); Protein, Total 6.9 g/dL (6.0-8.3); Sodium 136 mmol/L (136-145)
[2019-10-27 15:38] LABS: Bilirubin Small (Negative); Blood, Urine Trace (Negative); Glucose, Urine (Dipstick) 100 mg/dL (Negative); Leukocyte Negative (Negative); Nitrite Negative (Negative); Protein, Urine (Dipstick) Negative (Neg-Trace); Urobilinogen 0.2 mg/dL (Less than 2)
[2019-10-27 15:39] LABS: Bacteria/HPF None Seen HPF (None Seen); Clarity Turbid (Clear); RBC/HPF 0-3 HPF (0-3); Squamous Epithelial 0-3 HPF (0-3); WBC/HPF 0-3 HPF (0-3)
[2019-10-27 15:45] LABS: Pregnancy Test - Urine (BHCG) Negative (Negative); Pregu Control Background? CLEAR/WHITE (CLR/WHITE); Pregu Control Bar Appear? YES (CONTROL BAR); Specific Gravity 1.025 (1.002-1.036)
[2019-10-27] MEDS ORDERED: MEROPENEM 1 GM/50 ML 1 GM in Premix Bag 1 BAG IVPB SCH (16:15)
--- NOTE | 2019-10-27 16:22 | CT ---
CT abdomen and pelvis with IV contrast HISTORY: Abdominal pain. COMPARISON: 03/14/2016. FINDINGS: Lung bases are clear. The liver, spleen, kidneys, adrenal glands, and pancreas are unremark able. Nonspecific lymph nodes throughout the retroperitoneum and mesentery. Appendix is not inflamed. No evidence of bowel obstruction. Urinary bladder is unremarkable. Follicles arise from the ovaries. IMPRESSION: No abnormalities are demonstrated.
--- NOTE | 2019-10-27 16:23 | ULT ---
GALLBLADDER ULTRASOUND: Date: 10/27/19 INDICATION: Right upper quadrant pain. FINDINGS: The gallbladder is not well distended, probably due to nonfasting state. There is no evidence of gall stones. Gallbladder wall appears normal. Common duct is normal caliber. Liver is mildly echogenic, wh ich may indicate fatty infiltration. Liver is otherwise unremarkable. Pancreas mostly obscured. Visua lized right kidney is unremarkable. The technologist describes a negative Negrete's sign. IMPRESSION: 1. No evidence of gallstones. 2. Question fatty infiltration of the liver. POS: [facility]
== END 2019-10-27 19:14 | disposition home or self-care (01) ==
LOC: ERS 10:39
DX: R11.10 Vomiting, unspecified (principal); R65.10 Systemic inflammatory response syndrome (SIRS) of non-infectious origin without acute organ dysfunction; J45.909 Unspecified asthma, uncomplicated; E11.9 Type 2 diabetes mellitus without complications; Z79.899 Other long term (current) drug therapy; Z79.51 Long term (current) use of inhaled steroids
CPT/HCPCS: 74177; 76705; 80053; 81003; 81015; 81025; 83605; 85025; 93005; 96361; 96365; 96366; 96367; 96375; J1885; J2185; J2270; J2550; Q9967

== ENCOUNTER 2022-09-10 08:09 | Outpatient (CLI) | payer MEDICAID | END 2022-09-10 08:10 | disposition home or self-care (01) | LOC: BICULT 08:09 | PROVIDERS: ATTEND Nurse Practitioner Family | DX: N63.25 Unspecified lump in the left breast, overlapping quadrants (principal); N64.4 Mastodynia ==

== ENCOUNTER 2023-10-16 14:47 | Emergency (ER) | payer MEDICAID, SELFPAY ==
[2023-10-16] MEDS ORDERED: Albuterol 2.5 MG/0.5 ML NEB ONE (15:10)
[2023-10-16] MEDS ORDERED: predniSONE 20 MG TAB ONE (15:15)
[2023-10-16] MEDS ORDERED: Magnesium 2 GM/50 ML BAG (IN WATER) ONE (15:42)
[2023-10-16 15:57] LABS: #Basophils 0.1 thou/uL (0.0-0.2); #Eosinphils 0.4 thou/uL (0.0-0.7); #Monocytes 1.2 thou/uL (0.11-0.59); #Neutrophils 8.8 thou/uL (1.40-6.50); %Basophils 0.5 % (0.0-1.0); %Eosinophils 2.2 % (0.0-10.0); %Lymphocytes 36.3 % (21.0-51.0); %Monocytes 7.2 % (0.0-10.0); %Neutrophils 52.9 % (42.0-75.0); Hematocrit 48.8 % (36.0-47.0); Hemoglobin 16.5 g/dL (12.0-16.0); Mean Corpuscular HGB CONC 33.8 g/dL (32.0-36.0); Mean Corpuscular Hemoglobin 28.2 pg (27.0-31.0); Mean Corpuscular Volume 83.4 fl (78.0-98.0); Mean Platelet Volume 9.1 fL (7.4-10.4); Platelet Count 562 10x3/uL (130-400); RBC Distribution Width 12.5 % (11.5-14.5); Red Blood Cell (RBC) Count 5.85 mill/uL (4.20-5.40); White Blood Cell (WBC) Count 16.6 10x3/uL (4.8-10.8)
[2023-10-16 16:06] LABS: BHCG - Serum Negative (NEGATIVE); Pregs Control Background? CLEAR/WHITE (CLR/WHITE); Pregs Control Bar Appear? YES (CONTROL BAR)
[2023-10-16 16:20] LABS: ALT (SGPT) 21 U/L (8-55); AST (SGOT) 14 U/L (5-34); Albumin 4.1 g/dL (3.5-5.0); Alkaline Phosphatase 65 U/L (40-110); Anion Gap 20 mmol/L (10-20); BUN (Urea Nitrogen) 17 mg/dL (7.0-18.7); Bilirubin, Total 0.5 mg/dL (0.2-1.2); Calc. Creatinine Clearance 0 mL/min (70-130); Calcium 9.8 mg/dL (7.8-10.44); Carbon Dioxide 17 mmol/L (22-29); Chloride 104 mmol/L (98-107); Estimated GFR 80; Globulin 3.2 g/dL (2.4-3.5); Glucose 294 mg/dL (70-105); Potassium 3.6 mmol/L (3.5-5.1); Protein, Total 7.3 g/dL (6.0-8.3); Sodium 137 mmol/L (136-145)
[2023-10-16 16:23] LABS: Troponin I Less than 0.010 ng/mL (< 0.028)
[2023-10-16 16:41] LABS: SARS-CoV-2 NAA Rapid Test Not Detected (NotDetected)
== END 2023-10-16 17:40 | disposition home or self-care (01) ==
LOC: ERS 14:47
DX: J45.901 Unspecified asthma with (acute) exacerbation (principal); I10 Essential (primary) hypertension; J10.1 Influenza due to other identified influenza virus with other respiratory manifestations; E11.9 Type 2 diabetes mellitus without complications; Z20.822 Contact with and (suspected) exposure to COVID-19; Z87.891 Personal history of nicotine dependence; Z79.899 Other long term (current) drug therapy
CPT/HCPCS: 71046; 80053; 84484; 84703; 85025; 85379; 87804; 93005; 96365; J3475; J7512; J7611; U0002

== ENCOUNTER 2025-08-25 10:41 | Outpatient (CLI) | payer OTHER | END 2025-08-25 10:42 | disposition home or self-care (01) | LOC: RAD 10:41 | PROVIDERS: ATTEND Internal Medicine | DX: R06.00 Dyspnea, unspecified (principal) | CPT/HCPCS: 71046 ==